=== PATIENT | female | born 1965 | race Caucasian/White ===

== ENCOUNTER 2017-08-01 13:02 | Inpatient (IN) | payer OTHER ==
[2017-08-01] MEDS: LISINOPRIL 10 MG TAB PO (09:00)
[2017-08-01] MEDS: FUROSEMIDE 20 MG/2 ML VIAL (J1940) IV (09:00)
[~2017-08-01 13:02] MED LIST: FUROSEMIDE 20 MG TAB PO
[2017-08-01] MEDS ORDERED: NITROGLYCERIN 0.4 MG SUBL TABLET As Ordered (13:31)
[2017-08-01] MEDS ORDERED: ASPIRIN 81 MG CHEW TABLET As Ordered (13:31)
[2017-08-01 13:45] LABS: BASO % 0.5 % (0.0-1.0); EOS # 0.2 10^3/uL (0.0-0.50); EOS % 3.6 % (0.0-3.0); HEMATOCRIT 42.3 % (36.0-47.0); HEMOGLOBIN 14.1 g/dl (12.0-15.5); IMMATURE GRANULOCYTE % 0.3 % (0-3.0); LYMPH # 1.3 10^3/uL (1.5-4.5); LYMPH % 19.9 % (24.0-44.0); MEAN CORPUSCULAR HEMOGLOBIN 28.2 pg (27.0-33.0); MEAN CORPUSCULAR HGB CONC 33.3 g/dl (32.0-36.5); MEAN CORPUSCULAR VOLUME 84.6 fl (80.0-96.0); MONO # 0.5 10^3/uL (0.0-0.8); MONO % 7.9 % (0.0-5.0); NEUTROPHILS # 4.3 10^3/uL (1.8-7.7); NEUTROPHILS % 67.8 % (36.0-66.0); PLATELET COUNT, AUTOMATED 246 10^3/uL (150-450); RED CELL DISTRIBUTION WIDTH 13.2 % (11.5-14.5); WHITE BLOOD COUNT 6.3 10^3/uL (4.0-10.0)
[2017-08-01] MEDS: ASPIRIN 81 MG CHEW TABLET PO (13:45)
[2017-08-01] MEDS: NITROGLYCERIN 0.4 MG SUBL TABLET SL (13:46)
[2017-08-01 13:54] LABS: INR 1.09; PROTHROMBIN TIME 14.3 SECONDS (12.4-14.5)
[2017-08-01 13:55] LABS: PARTIAL THROMBOPLASTIN TIME 26.4 SECONDS (26.8-37.9)
[2017-08-01 13:57] LABS: D-DIMER QUANT 2259.9 ng/ml (<500)
[2017-08-01 14:14] LABS: PHENOBARBITAL LEVEL 16.6 UG/ML (15.0-40.0)
[2017-08-01 14:14] LABS: ALBUMIN 3.5 GM/DL (3.2-5.2); ALBUMIN/GLOBULIN RATIO 0.95 (1.00-1.93); ALKALINE PHOSPHATASE 133 U/L (45-117); ALT/SGPT 34 U/L (12-78); ANION GAP 8 MEQ/L (8-16); AST/SGOT 15 U/L (7-37); BILIRUBIN,DIRECT < 0.1 MG/DL (0.0-0.2); BILIRUBIN,TOTAL 0.3 MG/DL (0.2-1.0); BLOOD UREA NITROGEN 10 MG/DL (7-18); CALCIUM LEVEL 8.2 MG/DL (8.5-10.1); CARBON DIOXIDE LEVEL 26 MEQ/L (21-32); CHLORIDE LEVEL 108 MEQ/L (98-107); CPK CREATINE PHOSPHOKINASE 87 U/L (26-192); CREATININE FOR GFR 0.73 MG/DL (0.55-1.30); FREE T4 1.06 NG/DL (0.76-1.46); GLOMERULAR FILTRATION RATE > 60.0 (>51); GLUCOSE, FASTING 97 MG/DL (70-100); LIPASE 115 U/L (73-393); SODIUM LEVEL 142 MEQ/L (136-145); TOTAL PROTEIN 7.2 GM/DL (6.4-8.2); TROPONIN I < 0.02 NG/ML (< 0.10)
[2017-08-01 14:20] LABS: MB/CK RELATIVE INDEX 1.14 (< OR =4); NT-PRO BNP 201 PG/ML (<125); THYROID STIMULATING HORMONE 0.655 uIU/ML (0.358-3.740)
[2017-08-01] MEDS: cefTRIAXone SOD 1 GM in D5W MINI-BAG PLUS 50 ML IV (16:00)
[2017-08-01] MEDS: AZITHROMYCIN INJ 500 MG, VIAL MATE ADAPTER 1 EACH in D5W 250 ML IV (16:43)
[2017-08-01] MEDS ORDERED: MORPHINE 4 MG/ML 1ML VIAL/SYRINGE (J2270) As Ordered (17:11)
[2017-08-01] MEDS: MORPHINE 2 MG/ML 1ML SYRINGE (J2270) IV (17:30)
[2017-08-01 18:00] LABS: LDH LACTATE DEHYDROGENASE 246 U/L (84-246)
[2017-08-01 18:34] LABS: CHOLESTEROL LEVEL 211 MG/DL (<200); CHOLESTEROL RISK RATIO 3.767 (<5); HDL CHOLESTEROL 56 MG/DL (>40); NON-HDL-C 155 MG/DL; TRIGLYCERIDES LEVEL 110 MG/DL (<150)
[2017-08-01 18:42] LABS: PH BODY FLUID 7.649 UNITS (NOT ESTABLISHED); SOURCE, BODY FLUID pH PLEURAL
[2017-08-01 18:44] LABS: ESTIMATED AVERAGE GLUCOSE 111 MG/DL (60-110); HEMOGLOBIN A1c 5.5 %
[2017-08-01 19:10] LABS: AMYLASE, BODY FLUID 12 U/L (NOT ESTABLISHED); CHOLESTEROL, BODY FLUID 133 MG/DL (NOT ESTABLISHED); LDH, BODY FLUID 234 U/L (NOT ESTABLISHED); SOURCE, BODY FLUID AMYLASE PLEURAL; SOURCE, BODY FLUID CHOL PLEURAL; SOURCE, BODY FLUID GLUCOSE PLEURAL; SOURCE, BODY FLUID LDH PLEURAL; SOURCE, BODY FLUID TRIG PLEURAL; TRIGLYCERIDE, BODY FLUID 45 MG/DL (NOT ESTABLISHED)
[2017-08-01 19:11] LABS: BF MONONUCLEAR CELL % 58.2 % (0-0); BF POLYMORPHONUCLEAR CELL % 41.8 % (0-0); RBC BODY FLUID 20 10^3/uL (<2); WBC BODY FLUID 3947 /uL (0-10)
[2017-08-01 19:12] LABS: APPEARANCE, BODY FLUID CLOUDY (CLEAR); BF DIFF IF INDICATED? YES (NO); PLEURAL FL COLOR ORANGE (COLORLESS); SOURCE, BODY FLUID PLEURAL
[2017-08-01] MEDS ORDERED: MORPHINE 4 MG/ML 1ML VIAL/SYRINGE (J2270) IV (19:30)
[2017-08-01] MEDS: predniSONE 50 MG TAB PO (20:00)
[2017-08-01] MEDS: diphenhydrAMINE 50 MG CAP PO (20:00)
[2017-08-01] MEDS: AUGMENTIN 500 MG TAB PO (20:20)
[2017-08-01] MEDS: PERCOCET 5MG/325MG TAB PO (21:18)
[2017-08-02] MEDS: predniSONE 50 MG TAB PO ×2 (02:25→08:57)
[2017-08-02 06:14] LABS: HEMATOCRIT 42.6 % (36.0-47.0); HEMOGLOBIN 14.3 g/dl (12.0-15.5); MEAN CORPUSCULAR HEMOGLOBIN 28.2 pg (27.0-33.0); MEAN CORPUSCULAR HGB CONC 33.6 g/dl (32.0-36.5); PLATELET COUNT, AUTOMATED 258 10^3/uL (150-450); RED BLOOD COUNT 5.07 10^6/uL (4.00-5.40); RED CELL DISTRIBUTION WIDTH 13.2 % (11.5-14.5); WHITE BLOOD COUNT 8.2 10^3/uL (4.0-10.0)
[2017-08-02 06:40] LABS: ANION GAP 9 MEQ/L (8-16); BLOOD UREA NITROGEN 12 MG/DL (7-18); CALCIUM LEVEL 8.5 MG/DL (8.5-10.1); CARBON DIOXIDE LEVEL 24 MEQ/L (21-32); CHLORIDE LEVEL 110 MEQ/L (98-107); CREATININE FOR GFR 0.73 MG/DL (0.55-1.30); GLOMERULAR FILTRATION RATE > 60.0 (>51); GLUCOSE, FASTING 135 MG/DL (70-100); MAGNESIUM LEVEL 2.2 MG/DL (1.8-2.4); POTASSIUM SERUM 4.1 MEQ/L (3.5-5.1); SODIUM LEVEL 143 MEQ/L (136-145)
[2017-08-02] MEDS ORDERED: ISOVUE-370 76% 100ML VIAL (Q9967) As Ordered (08:29)
[2017-08-02] MEDS: diphenhydrAMINE INJ 50MG/ML VIAL (J1200) IV (08:55)
[2017-08-02] MEDS: ENOXAPARIN 40 MG/0.4 ML SYRINGE (J1650) SC (08:55)
[2017-08-02] MEDS: FUROSEMIDE 20 MG/2 ML VIAL (J1940) IV (08:56)
[2017-08-02] MEDS: AUGMENTIN 500 MG TAB PO (08:58)
[2017-08-02] MEDS: LISINOPRIL 10 MG TAB PO (08:58)
[2017-08-02] MEDS: PHENobarbital 30 MG TAB PO (09:04)
== END 2017-08-02 17:22 | disposition home or self-care (01) | DRG 139 ==
LOC: M ED 13:02 → M ED INP 18:08 → M MSPAV 20:40
PROVIDERS: Internal Medicine
PROC: 0W993ZZ Drainage of Right Pleural Cavity, Percutaneous Approach (ICD-10-PCS; principal; 2017-08-01)
DX: J18.9 Pneumonia, unspecified organism (principal); J90 Pleural effusion, not elsewhere classified; E66.01 Morbid (severe) obesity due to excess calories; Z68.41 Body mass index [BMI] 40.0-44.9, adult; I10 Essential (primary) hypertension; G40.909 Epilepsy, unspecified, not intractable, without status epilepticus; Z91.041 Radiographic dye allergy status

== ENCOUNTER → 2017-08-31 | Outpatient (CLI) | payer OTHER | LOC: M RAD 19:17 | DX: R05 Cough (principal); J90 Pleural effusion, not elsewhere classified; J98.11 Atelectasis | CPT/HCPCS: 71046 ==

== ENCOUNTER 2017-09-02 17:55 | Inpatient (IN) | payer OTHER ==
[2017-09-02 17:36] LABS: BASO % 0.5 % (0.0-1.0); EOS # 0.1 10^3/uL (0.0-0.50); EOS % 2.2 % (0.0-3.0); HEMATOCRIT 44.1 % (36.0-47.0); HEMOGLOBIN 14.9 g/dl (12.0-15.5); IMMATURE GRANULOCYTE % 0.2 % (0-3.0); LYMPH # 1.2 10^3/uL (1.5-4.5); LYMPH % 21.4 % (24.0-44.0); MEAN CORPUSCULAR HEMOGLOBIN 28.2 pg (27.0-33.0); MEAN CORPUSCULAR HGB CONC 33.8 g/dl (32.0-36.5); MEAN CORPUSCULAR VOLUME 83.4 fl (80.0-96.0); MONO # 0.5 10^3/uL (0.0-0.8); MONO % 7.9 % (0.0-5.0); NEUTROPHILS # 3.9 10^3/uL (1.8-7.7); NEUTROPHILS % 67.8 % (36.0-66.0); PLATELET COUNT, AUTOMATED 210 10^3/uL (150-450); RED BLOOD COUNT 5.29 10^6/uL (4.00-5.40); RED CELL DISTRIBUTION WIDTH 13.5 % (11.5-14.5); WHITE BLOOD COUNT 5.8 10^3/uL (4.0-10.0)
[2017-09-02 17:49] LABS: INR 1.09; PROTHROMBIN TIME 14.3 SECONDS (12.1-14.4)
[2017-09-02 17:53] LABS: ERYTHROCYTE SEDIMENTATION RATE 14 mm/hr (0-30)
[2017-09-02 18:00] LABS: RHEUMATOID FACTOR QUANT < 10.0 IU/ML (<15.0)
[2017-09-02] MEDS ORDERED: BISACODYL 5 MG TAB PO ×2 (18:00)
[2017-09-02] MEDS ORDERED: ACETAMINOPHEN TAB 650MG DOSE (2X325MG) PO ×2 (18:00)
[2017-09-02] MEDS ORDERED: MORPHINE 4 MG/ML 1ML VIAL/SYRINGE (J2270) IV ×2 (18:00)
[2017-09-02 18:01] LABS: AST/SGOT 10 U/L (7-37)
[2017-09-02 18:01] LABS: ALT/SGPT 25 U/L (12-78); LDH LACTATE DEHYDROGENASE 225 U/L (84-246)
[2017-09-02] MEDS ORDERED: FLUMAZENIL 0.5 MG/5 ML VIAL As Ordered ×2 (18:15)
[2017-09-02] MEDS ORDERED: MIDAZOLAM INJ 2 MG/2 ML VIAL (J2250) As Ordered ×8 (18:15→19:03)
[2017-09-02] MEDS ORDERED: LIDOCAINE 1% MDV 20ML VIAL As Ordered ×4 (18:17→19:04)
[2017-09-02 18:23] LABS: BASO % 0.5 % (0.0-1.0); EOS # 0.1 10^3/uL (0.0-0.50); EOS % 1.7 % (0.0-3.0); HEMATOCRIT 45.2 % (36.0-47.0); HEMOGLOBIN 15.1 g/dl (12.0-15.5); IMMATURE GRANULOCYTE % 0.2 % (0-3.0); LYMPH # 1.2 10^3/uL (1.5-4.5); LYMPH % 20.3 % (24.0-44.0); MEAN CORPUSCULAR HEMOGLOBIN 28.3 pg (27.0-33.0); MEAN CORPUSCULAR HGB CONC 33.4 g/dl (32.0-36.5); MEAN CORPUSCULAR VOLUME 84.8 fl (80.0-96.0); MONO # 0.5 10^3/uL (0.0-0.8); MONO % 7.7 % (0.0-5.0); NEUTROPHILS # 4.1 10^3/uL (1.8-7.7); NEUTROPHILS % 69.6 % (36.0-66.0); PLATELET COUNT, AUTOMATED 216 10^3/uL (150-450); RED BLOOD COUNT 5.33 10^6/uL (4.00-5.40); RED CELL DISTRIBUTION WIDTH 13.5 % (11.5-14.5); WHITE BLOOD COUNT 5.9 10^3/uL (4.0-10.0)
[2017-09-02 18:38] LABS: ALBUMIN/GLOBULIN RATIO 1.05 (1.00-1.93); ALKALINE PHOSPHATASE 145 U/L (45-117); ALT/SGPT 25 U/L (12-78); ANION GAP 9 MEQ/L (8-16); AST/SGOT 10 U/L (7-37); BILIRUBIN,TOTAL 0.4 MG/DL (0.2-1.0); BLOOD UREA NITROGEN 11 MG/DL (7-18); CALCIUM LEVEL 8.6 MG/DL (8.5-10.1); CARBON DIOXIDE LEVEL 25 MEQ/L (21-32); CHLORIDE LEVEL 107 MEQ/L (98-107); CHOLESTEROL LEVEL 245 MG/DL (< 200); CPK CREATINE PHOSPHOKINASE 73 U/L (26-192); CREATININE FOR GFR 0.74 MG/DL (0.55-1.30); GLOMERULAR FILTRATION RATE > 60.0 (>51); GLUCOSE, FASTING 88 MG/DL (70-100); LDH LACTATE DEHYDROGENASE 219 U/L (84-246); PHOSPHORUS LEVEL 2.7 MG/DL (2.5-4.9); SODIUM LEVEL 141 MEQ/L (136-145); TOTAL PROTEIN 7.8 GM/DL (6.4-8.2); TRIGLYCERIDES LEVEL 112 MG/DL (<150)
[2017-09-02] MEDS: MIDAZOLAM INJ 2 MG/2 ML VIAL (J2250) IV ×6 (19:06→19:16)
[2017-09-02] MEDS: LIDOCAINE 1% MDV 20ML VIAL SC ×4 (19:11)
[2017-09-02] MEDS ORDERED: NORCO, ANEXSIA 5/325MG TABLET (HYDROcodone/ACETAMINOPHEN) PO ×2 (19:30)
[2017-09-02 19:54] LABS: PH BODY FLUID 7.662 UNITS (NOT ESTABLISHED); RBC BODY FLUID 12 10^3/uL (<2); SOURCE, BODY FLUID pH PLEURAL; WBC BODY FLUID 1949 /uL (0-10)
[2017-09-02 19:55] LABS: APPEARANCE, BODY FLUID CLOUDY (CLEAR); BF DIFF IF INDICATED? YES (NO); PLEURAL FL COLOR AMBER (COLORLESS); SOURCE, BODY FLUID PLEURAL
[2017-09-02] MEDS: LEVALBUTEROL 1.25 MG/0.5 ML CONCENTRATE NEB NEB ×2 (20:00)
[2017-09-02 20:15] LABS: AMYLASE, BODY FLUID 14 U/L (NOT ESTABLISHED); CHOLESTEROL, BODY FLUID 146 MG/DL (NOT ESTABLISHED); LDH, BODY FLUID 199 U/L (NOT ESTABLISHED); SOURCE, BODY FLUID ALBUMIN PLEURAL; SOURCE, BODY FLUID AMYLASE PLEURAL; SOURCE, BODY FLUID CHOL PLEURAL; SOURCE, BODY FLUID GLUCOSE PLEURAL; SOURCE, BODY FLUID LDH PLEURAL; SOURCE, BODY FLUID TOT PROTEIN PLEURAL; SOURCE, BODY FLUID TRIG PLEURAL; TOTAL PROTEIN, BODY FLUID 5.7 G/DL (NOT ESTABLISHED); TRIGLYCERIDE, BODY FLUID 50 MG/DL (NOT ESTABLISHED)
[2017-09-02] MEDS: KCL 20MEQ IN D5/NS 1000ML 1,000 ML IV (20:16)
[2017-09-02] MEDS: DOCUSATE SODIUM 100 MG CAP PO ×2 (20:17)
[2017-09-02] MEDS: KETOROLAC 30 MG/ML VIAL (J1885) IV ×2 (20:17)
[2017-09-02] MEDS: HEPARIN SOD (PORCINE) 5000 UNITS/ML VIAL SC ×2 (21:26)
[2017-09-03] MEDS: LEVALBUTEROL 1.25 MG/0.5 ML CONCENTRATE NEB NEB ×8 (02:00→20:00)
[2017-09-03] MEDS: KETOROLAC 30 MG/ML VIAL (J1885) IV ×8 (02:15→21:08)
[2017-09-03] MEDS: HEPARIN SOD (PORCINE) 5000 UNITS/ML VIAL SC ×6 (05:18→21:08)
[2017-09-03 05:38] LABS: BASO % 0.5 % (0.0-1.0); EOS # 0.1 10^3/uL (0.0-0.50); EOS % 1.9 % (0.0-3.0); HEMOGLOBIN 13.9 g/dl (12.0-15.5); IMMATURE GRANULOCYTE % 0.2 % (0-3.0); LYMPH # 1.2 10^3/uL (1.5-4.5); LYMPH % 19.9 % (24.0-44.0); MEAN CORPUSCULAR HEMOGLOBIN 27.7 pg (27.0-33.0); MEAN CORPUSCULAR HGB CONC 33.1 g/dl (32.0-36.5); MEAN CORPUSCULAR VOLUME 83.8 fl (80.0-96.0); MONO # 0.6 10^3/uL (0.0-0.8); NEUTROPHILS # 4.3 10^3/uL (1.8-7.7); NEUTROPHILS % 68.5 % (36.0-66.0); PLATELET COUNT, AUTOMATED 204 10^3/uL (150-450); RED BLOOD COUNT 5.01 10^6/uL (4.00-5.40); RED CELL DISTRIBUTION WIDTH 13.6 % (11.5-14.5); WHITE BLOOD COUNT 6.2 10^3/uL (4.0-10.0)
[2017-09-03 06:00] LABS: ANION GAP 6 MEQ/L (8-16); BLOOD UREA NITROGEN 13 MG/DL (7-18); CARBON DIOXIDE LEVEL 27 MEQ/L (21-32); CHLORIDE LEVEL 109 MEQ/L (98-107); CREATININE FOR GFR 0.76 MG/DL (0.55-1.30); GLOMERULAR FILTRATION RATE > 60.0 (>51); GLUCOSE, FASTING 101 MG/DL (70-100); POTASSIUM SERUM 4.2 MEQ/L (3.5-5.1); SODIUM LEVEL 142 MEQ/L (136-145)
[2017-09-03 06:03] LABS: FREE THYROXINE INDEX 2.8 % (1.3-4.8); T UPTAKE 34 % (30-39); THYROXINE (T4) 8.1 UG/DL (4.5-12.0)
[2017-09-03 06:05] LABS: ABG BASE EXCESS -0.4 (-2.0-2.0); ABG HCO3 23.9 MEQ/L (22.0-26.0); ABG O2 SATURATION 96.3 % (95.0-99.0); ABG PARTIAL PRESSURE O2 79.7 mmHg (75.0-100.0); ABG STANDARD HCO3 24.2 MEQ/L (22.0-26.0); ABG pH (ARTERIAL) 7.416 UNITS (7.350-7.450)
[2017-09-03] MEDS: MOM 30ML SUSPENSION UDC PO ×2 (08:39)
[2017-09-03] MEDS: DOCUSATE SODIUM 100 MG CAP PO ×4 (08:39→21:07)
[2017-09-03] MEDS: PANTOPRAZOLE 40MG TAB (PROTONIX) PO ×2 (08:39)
[2017-09-03] MEDS: PHENobarbital 30 MG TAB PO ×2 (11:06)
[2017-09-03 11:17] LABS: PHENOBARBITAL LEVEL 13.8 UG/ML (15.0-40.0)
[2017-09-03] MEDS: ONDANSETRON 4 MG TAB (S0181) PO ×2 (21:07)
[2017-09-04] MEDS: LEVALBUTEROL 1.25 MG/0.5 ML CONCENTRATE NEB NEB ×8 (02:00→20:00)
[2017-09-04] MEDS: KETOROLAC 30 MG/ML VIAL (J1885) IV ×8 (02:58→19:31)
[2017-09-04] MEDS: HEPARIN SOD (PORCINE) 5000 UNITS/ML VIAL SC ×6 (05:45→21:58)
[2017-09-04 06:15] LABS: ANION GAP 5 MEQ/L (8-16); BLOOD UREA NITROGEN 13 MG/DL (7-18); CALCIUM LEVEL 8.1 MG/DL (8.5-10.1); CARBON DIOXIDE LEVEL 28 MEQ/L (21-32); CHLORIDE LEVEL 109 MEQ/L (98-107); GLOMERULAR FILTRATION RATE > 60.0 (>51); GLUCOSE, FASTING 102 MG/DL (70-100); POTASSIUM SERUM 4.1 MEQ/L (3.5-5.1); SODIUM LEVEL 142 MEQ/L (136-145)
[2017-09-04] MEDS: PHENobarbital 30 MG TAB PO ×2 (08:37)
[2017-09-04] MEDS: MOM 30ML SUSPENSION UDC PO ×2 (08:37)
[2017-09-04] MEDS: PANTOPRAZOLE 40MG TAB (PROTONIX) PO ×2 (08:37)
[2017-09-04] MEDS: DOCUSATE SODIUM 100 MG CAP PO ×4 (08:38→19:31)
[2017-09-04] MEDS ORDERED: SLF 3 ML SYR IV ×2 (15:00)
[2017-09-04] MEDS: SLF 3 ML SYR IV ×2 (19:32)
[2017-09-05] MEDS: LEVALBUTEROL 1.25 MG/0.5 ML CONCENTRATE NEB NEB ×8 (01:23→20:51)
[2017-09-05] MEDS: KETOROLAC 30 MG/ML VIAL (J1885) IV ×8 (04:15→20:16)
[2017-09-05 06:12] LABS: ANION GAP 4 MEQ/L (8-16); BLOOD UREA NITROGEN 12 MG/DL (7-18); CALCIUM LEVEL 8.1 MG/DL (8.5-10.1); CARBON DIOXIDE LEVEL 30 MEQ/L (21-32); CHLORIDE LEVEL 107 MEQ/L (98-107); CREATININE FOR GFR 0.75 MG/DL (0.55-1.30); GLOMERULAR FILTRATION RATE > 60.0 (>51); GLUCOSE, FASTING 98 MG/DL (70-100); POTASSIUM SERUM 4.2 MEQ/L (3.5-5.1); SODIUM LEVEL 141 MEQ/L (136-145)
[2017-09-05] MEDS: SLF 3 ML SYR IV ×6 (06:51→21:55)
[2017-09-05] MEDS: HEPARIN SOD (PORCINE) 5000 UNITS/ML VIAL SC ×6 (06:51→21:55)
[2017-09-05] MEDS: PERCOCET 5MG/325MG TAB PO ×6 (07:00→20:16)
[2017-09-05] MEDS: DOCUSATE SODIUM 100 MG CAP PO ×4 (08:44→20:15)
[2017-09-05] MEDS: PANTOPRAZOLE 40MG TAB (PROTONIX) PO ×2 (08:44)
[2017-09-05] MEDS: MOM 30ML SUSPENSION UDC PO ×2 (08:44)
[2017-09-05] MEDS: PHENobarbital 30 MG TAB PO ×2 (08:44)
[2017-09-06] MEDS: PERCOCET 5MG/325MG TAB PO ×10 (01:12→20:34)
[2017-09-06] MEDS: KETOROLAC 30 MG/ML VIAL (J1885) IV ×8 (01:12→20:34)
[2017-09-06] MEDS: LEVALBUTEROL 1.25 MG/0.5 ML CONCENTRATE NEB NEB ×10 (01:26→19:54)
[2017-09-06] MEDS: SLF 3 ML SYR IV ×6 (05:41→20:34)
[2017-09-06] MEDS: HEPARIN SOD (PORCINE) 5000 UNITS/ML VIAL SC ×6 (05:41→22:00)
[2017-09-06 06:24] LABS: ANION GAP 8 MEQ/L (8-16); BLOOD UREA NITROGEN 11 MG/DL (7-18); CALCIUM LEVEL 8.1 MG/DL (8.5-10.1); CARBON DIOXIDE LEVEL 27 MEQ/L (21-32); CHLORIDE LEVEL 105 MEQ/L (98-107); CREATININE FOR GFR 0.84 MG/DL (0.55-1.30); GLOMERULAR FILTRATION RATE > 60.0 (>51); GLUCOSE, FASTING 103 MG/DL (70-100); POTASSIUM SERUM 3.8 MEQ/L (3.5-5.1); SODIUM LEVEL 140 MEQ/L (136-145)
[2017-09-06] MEDS: ONDANSETRON 4 MG TAB (S0181) PO ×2 (07:06)
[2017-09-06] MEDS: PHENobarbital 30 MG TAB PO ×2 (08:22)
[2017-09-06] MEDS: DOCUSATE SODIUM 100 MG CAP PO ×4 (08:22→20:33)
[2017-09-06] MEDS: PANTOPRAZOLE 40MG TAB (PROTONIX) PO ×2 (08:22)
[2017-09-06] MEDS: MOM 30ML SUSPENSION UDC PO ×2 (08:23)
[2017-09-07] MEDS: LEVALBUTEROL 1.25 MG/0.5 ML CONCENTRATE NEB NEB ×8 (02:00→19:54)
[2017-09-07] MEDS: KETOROLAC 30 MG/ML VIAL (J1885) IV ×6 (02:01→13:53)
[2017-09-07] MEDS: PERCOCET 5MG/325MG TAB PO ×10 (02:01→21:07)
[2017-09-07 05:41] LABS: ANION GAP 6 MEQ/L (8-16); BLOOD UREA NITROGEN 11 MG/DL (7-18); CALCIUM LEVEL 8.1 MG/DL (8.5-10.1); CARBON DIOXIDE LEVEL 29 MEQ/L (21-32); CHLORIDE LEVEL 106 MEQ/L (98-107); CREATININE FOR GFR 0.79 MG/DL (0.55-1.30); GLOMERULAR FILTRATION RATE > 60.0 (>51); GLUCOSE, FASTING 103 MG/DL (70-100); POTASSIUM SERUM 4.5 MEQ/L (3.5-5.1); SODIUM LEVEL 141 MEQ/L (136-145)
[2017-09-07] MEDS: SLF 3 ML SYR IV ×6 (05:55→21:08)
[2017-09-07] MEDS: HEPARIN SOD (PORCINE) 5000 UNITS/ML VIAL SC ×6 (05:55→21:06)
[2017-09-07] MEDS: MOM 30ML SUSPENSION UDC PO ×2 (08:14)
[2017-09-07] MEDS: PANTOPRAZOLE 40MG TAB (PROTONIX) PO ×2 (08:15)
[2017-09-07] MEDS: PHENobarbital 30 MG TAB PO ×2 (08:15)
[2017-09-07] MEDS: DOCUSATE SODIUM 100 MG CAP PO ×4 (08:15→21:06)
[2017-09-08] MEDS: LEVALBUTEROL 1.25 MG/0.5 ML CONCENTRATE NEB NEB ×8 (01:27→19:50)
[2017-09-08] MEDS: PERCOCET 5MG/325MG TAB PO ×6 (04:45→23:11)
[2017-09-08] MEDS: HEPARIN SOD (PORCINE) 5000 UNITS/ML VIAL SC ×6 (05:38→21:01)
[2017-09-08] MEDS: SLF 3 ML SYR IV ×6 (05:38→21:02)
[2017-09-08 06:20] LABS: ANION GAP 7 MEQ/L (8-16); BLOOD UREA NITROGEN 11 MG/DL (7-18); CALCIUM LEVEL 8.3 MG/DL (8.5-10.1); CARBON DIOXIDE LEVEL 27 MEQ/L (21-32); CHLORIDE LEVEL 105 MEQ/L (98-107); GLOMERULAR FILTRATION RATE > 60.0 (>51); GLUCOSE, FASTING 106 MG/DL (70-100); POTASSIUM SERUM 4.3 MEQ/L (3.5-5.1); SODIUM LEVEL 139 MEQ/L (136-145)
[2017-09-08] MEDS: MOM 30ML SUSPENSION UDC PO ×2 (08:45)
[2017-09-08] MEDS: PANTOPRAZOLE 40MG TAB (PROTONIX) PO ×2 (08:45)
[2017-09-08] MEDS: DOCUSATE SODIUM 100 MG CAP PO ×4 (08:45→20:41)
[2017-09-08] MEDS: PHENobarbital 30 MG TAB PO ×2 (08:45)
[2017-09-08 08:46] LABS: BASO % 0.5 % (0.0-1.0); EOS # 0.1 10^3/uL (0.0-0.50); EOS % 1.7 % (0.0-3.0); HEMOGLOBIN 12.9 g/dl (12.0-15.5); IMMATURE GRANULOCYTE % 0.2 % (0-3.0); LYMPH # 0.7 10^3/uL (1.5-4.5); LYMPH % 11.1 % (24.0-44.0); MEAN CORPUSCULAR HEMOGLOBIN 28.2 pg (27.0-33.0); MEAN CORPUSCULAR HGB CONC 32.3 g/dl (32.0-36.5); MEAN CORPUSCULAR VOLUME 87.3 fl (80.0-96.0); MONO # 0.5 10^3/uL (0.0-0.8); MONO % 7.8 % (0.0-5.0); NEUTROPHILS # 5.2 10^3/uL (1.8-7.7); NEUTROPHILS % 78.7 % (36.0-66.0); PLATELET COUNT, AUTOMATED 229 10^3/uL (150-450); RED BLOOD COUNT 4.58 10^6/uL (4.00-5.40); RED CELL DISTRIBUTION WIDTH 13.7 % (11.5-14.5); WHITE BLOOD COUNT 6.7 10^3/uL (4.0-10.0)
[2017-09-08] MEDS: MORPHINE 4 MG/ML 1ML VIAL/SYRINGE (J2270) IV ×4 (12:18→20:43)
[2017-09-08] MEDS: MOXIFLOXACIN 400 MG TAB PO ×2 (13:52)
[2017-09-08 15:41] LABS: ANTI-SMOOTH MUSCLE ANTIBODY 26 High Units
[2017-09-08 15:42] LABS: ANTI DOUBLE STRAND-DNA AB 58 High IU/mL
[2017-09-08 15:43] LABS: ANTI SCLERODERMA ANTIBODIES <0.2 AI
[2017-09-08 15:44] LABS: SSA SJOGRENS A >8.0 High AI
[2017-09-08 15:45] LABS: SSB SJOGRENS B <0.2 AI
[2017-09-08] MEDS: BISACODYL 10 MG SUPP PR ×2 (16:51)
[2017-09-09] MEDS: LEVALBUTEROL 1.25 MG/0.5 ML CONCENTRATE NEB NEB ×8 (02:00→21:12)
[2017-09-09] MEDS: PERCOCET 5MG/325MG TAB PO ×8 (05:40→20:56)
[2017-09-09] MEDS: HEPARIN SOD (PORCINE) 5000 UNITS/ML VIAL SC ×6 (05:41→20:54)
[2017-09-09] MEDS: MOXIFLOXACIN 400 MG TAB PO ×2 (05:41)
[2017-09-09] MEDS: SLF 3 ML SYR IV ×6 (05:41→21:00)
[2017-09-09 06:20] LABS: BASO % 0.3 % (0.0-1.0); EOS # 0.1 10^3/uL (0.0-0.50); EOS % 1.3 % (0.0-3.0); HEMATOCRIT 39.6 % (36.0-47.0); IMMATURE GRANULOCYTE % 0.3 % (0-3.0); LYMPH # 0.9 10^3/uL (1.5-4.5); LYMPH % 9.4 % (24.0-44.0); MEAN CORPUSCULAR HEMOGLOBIN 28.1 pg (27.0-33.0); MEAN CORPUSCULAR HGB CONC 32.8 g/dl (32.0-36.5); MEAN CORPUSCULAR VOLUME 85.5 fl (80.0-96.0); MONO # 0.7 10^3/uL (0.0-0.8); MONO % 8.1 % (0.0-5.0); NEUTROPHILS # 7.3 10^3/uL (1.8-7.7); NEUTROPHILS % 80.6 % (36.0-66.0); PLATELET COUNT, AUTOMATED 239 10^3/uL (150-450); RED BLOOD COUNT 4.63 10^6/uL (4.00-5.40); RED CELL DISTRIBUTION WIDTH 13.6 % (11.5-14.5); WHITE BLOOD COUNT 9.1 10^3/uL (4.0-10.0)
[2017-09-09 06:38] LABS: ANION GAP 8 MEQ/L (8-16); BLOOD UREA NITROGEN 10 MG/DL (7-18); CALCIUM LEVEL 8.5 MG/DL (8.5-10.1); CARBON DIOXIDE LEVEL 27 MEQ/L (21-32); CHLORIDE LEVEL 103 MEQ/L (98-107); CREATININE FOR GFR 0.78 MG/DL (0.55-1.30); GLOMERULAR FILTRATION RATE > 60.0 (>51); GLUCOSE, FASTING 110 MG/DL (70-100); POTASSIUM SERUM 4.1 MEQ/L (3.5-5.1); SODIUM LEVEL 138 MEQ/L (136-145)
[2017-09-09] MEDS: DOCUSATE SODIUM 100 MG CAP PO ×4 (09:00→20:56)
[2017-09-09] MEDS: PHENobarbital 30 MG TAB PO ×2 (09:00)
[2017-09-09] MEDS: MOM 30ML SUSPENSION UDC PO ×2 (09:00)
[2017-09-09] MEDS: PANTOPRAZOLE 40MG TAB (PROTONIX) PO ×2 (09:00)
[2017-09-09] MEDS: ALTEPLASE 2 MG/2 ML VIAL (J2997 PER 1MG) XX ×2 (11:54)
[2017-09-09] MEDS: MORPHINE 4 MG/ML 1ML VIAL/SYRINGE (J2270) IV ×2 (16:57)
[2017-09-10] MEDS: LEVALBUTEROL 1.25 MG/0.5 ML CONCENTRATE NEB NEB ×8 (02:04→19:55)
[2017-09-10] MEDS: PERCOCET 5MG/325MG TAB PO ×2 (03:31)
[2017-09-10] MEDS: HEPARIN SOD (PORCINE) 5000 UNITS/ML VIAL SC ×6 (05:47→21:03)
[2017-09-10] MEDS: MOXIFLOXACIN 400 MG TAB PO ×2 (05:47)
[2017-09-10] MEDS: SLF 3 ML SYR IV ×6 (05:47→21:04)
[2017-09-10 05:57] LABS: BASO % 0.3 % (0.0-1.0); EOS # 0.2 10^3/uL (0.0-0.50); HEMATOCRIT 36.2 % (36.0-47.0); HEMOGLOBIN 11.8 g/dl (12.0-15.5); IMMATURE GRANULOCYTE % 0.4 % (0-3.0); LYMPH # 0.9 10^3/uL (1.5-4.5); LYMPH % 11.8 % (24.0-44.0); MEAN CORPUSCULAR HEMOGLOBIN 28.2 pg (27.0-33.0); MEAN CORPUSCULAR HGB CONC 32.6 g/dl (32.0-36.5); MEAN CORPUSCULAR VOLUME 86.4 fl (80.0-96.0); MONO # 0.7 10^3/uL (0.0-0.8); MONO % 9.8 % (0.0-5.0); NEUTROPHILS # 5.7 10^3/uL (1.8-7.7); NEUTROPHILS % 75.7 % (36.0-66.0); PLATELET COUNT, AUTOMATED 212 10^3/uL (150-450); RED BLOOD COUNT 4.19 10^6/uL (4.00-5.40); RED CELL DISTRIBUTION WIDTH 13.6 % (11.5-14.5); WHITE BLOOD COUNT 7.6 10^3/uL (4.0-10.0)
[2017-09-10 06:12] LABS: ANION GAP 8 MEQ/L (8-16); BLOOD UREA NITROGEN 11 MG/DL (7-18); CALCIUM LEVEL 8.2 MG/DL (8.5-10.1); CARBON DIOXIDE LEVEL 26 MEQ/L (21-32); CHLORIDE LEVEL 103 MEQ/L (98-107); CREATININE FOR GFR 0.71 MG/DL (0.55-1.30); GLOMERULAR FILTRATION RATE > 60.0 (>51); GLUCOSE, FASTING 102 MG/DL (70-100); POTASSIUM SERUM 4.1 MEQ/L (3.5-5.1); SODIUM LEVEL 137 MEQ/L (136-145)
[2017-09-10] MEDS: PHENobarbital 30 MG TAB PO ×2 (08:13)
[2017-09-10] MEDS: MOM 30ML SUSPENSION UDC PO ×2 (08:13)
[2017-09-10] MEDS: PANTOPRAZOLE 40MG TAB (PROTONIX) PO ×2 (08:13)
[2017-09-10] MEDS: DOCUSATE SODIUM 100 MG CAP PO ×4 (08:14→21:00)
[2017-09-11] MEDS: LEVALBUTEROL 1.25 MG/0.5 ML CONCENTRATE NEB NEB ×6 (01:31→13:05)
[2017-09-11] MEDS: SLF 3 ML SYR IV ×4 (06:00→14:00)
[2017-09-11 06:04] LABS: BASO % 0.5 % (0.0-1.0); EOS # 0.2 10^3/uL (0.0-0.50); EOS % 3.7 % (0.0-3.0); HEMATOCRIT 37.3 % (36.0-47.0); IMMATURE GRANULOCYTE % 0.3 % (0-3.0); LYMPH # 0.9 10^3/uL (1.5-4.5); LYMPH % 14.9 % (24.0-44.0); MEAN CORPUSCULAR HEMOGLOBIN 28.1 pg (27.0-33.0); MEAN CORPUSCULAR HGB CONC 32.2 g/dl (32.0-36.5); MEAN CORPUSCULAR VOLUME 87.4 fl (80.0-96.0); MONO # 0.6 10^3/uL (0.0-0.8); MONO % 9.2 % (0.0-5.0); NEUTROPHILS # 4.3 10^3/uL (1.8-7.7); NEUTROPHILS % 71.4 % (36.0-66.0); PLATELET COUNT, AUTOMATED 248 10^3/uL (150-450); RED BLOOD COUNT 4.27 10^6/uL (4.00-5.40); RED CELL DISTRIBUTION WIDTH 13.5 % (11.5-14.5)
[2017-09-11] MEDS: MOXIFLOXACIN 400 MG TAB PO ×2 (06:06)
[2017-09-11] MEDS: HEPARIN SOD (PORCINE) 5000 UNITS/ML VIAL SC ×4 (06:06→14:00)
[2017-09-11 06:17] LABS: ANION GAP 8 MEQ/L (8-16); BLOOD UREA NITROGEN 13 MG/DL (7-18); CALCIUM LEVEL 8.3 MG/DL (8.5-10.1); CARBON DIOXIDE LEVEL 26 MEQ/L (21-32); CHLORIDE LEVEL 108 MEQ/L (98-107); CREATININE FOR GFR 0.67 MG/DL (0.55-1.30); GLOMERULAR FILTRATION RATE > 60.0 (>51); GLUCOSE, FASTING 97 MG/DL (70-100); POTASSIUM SERUM 3.8 MEQ/L (3.5-5.1); SODIUM LEVEL 142 MEQ/L (136-145)
[2017-09-11] MEDS: DOCUSATE SODIUM 100 MG CAP PO ×2 (09:00)
[2017-09-11] MEDS: MOM 30ML SUSPENSION UDC PO ×2 (09:00)
[2017-09-11] MEDS: PHENobarbital 30 MG TAB PO ×2 (09:11)
[2017-09-11] MEDS: PANTOPRAZOLE 40MG TAB (PROTONIX) PO ×2 (09:11)
[2017-09-12] MEDS ORDERED: PHENobarbital 30 MG TAB PO ×2 (09:00)
[2017-09-14 07:20] LABS: ANTI DOUBLE STRAND-DNA AB 60 High IU/mL
[2017-09-14 07:21] LABS: RNP ANTIBODIES <0.2 AI; SJOGREN'S ANTI SS-A >8.0 High AI; SJOGREN'S ANTI SS-B <0.2 AI; SMITH ANTIBODIES <0.2 AI
[2017-09-14 07:39] LABS: ANA COMMENT See below:
== END 2017-09-11 16:32 | disposition home or self-care (01) | DRG 143 ==
LOC: M PCU 17:55
PROVIDERS: Internal Medicine Pulmonary Disease
PROC: 0W9930Z Drainage of Right Pleural Cavity with Drainage Device, Percutaneous Approach (ICD-10-PCS; principal; 2017-09-02 17:03)
DX: J90 Pleural effusion, not elsewhere classified (principal); J95.811 Postprocedural pneumothorax; E66.01 Morbid (severe) obesity due to excess calories; G40.909 Epilepsy, unspecified, not intractable, without status epilepticus

== ENCOUNTER → 2017-09-02 | Outpatient (CLI) | payer OTHER | LOC: M RAD 17:49 | DX: J90 Pleural effusion, not elsewhere classified (principal); J98.11 Atelectasis | CPT/HCPCS: 71250 ==

== ENCOUNTER → 2017-10-20 | Outpatient (CLI) | payer OTHER | LOC: M SMT 14:54 | DX: M32.13 Lung involvement in systemic lupus erythematosus (principal) | CPT/HCPCS: 71046 ==

== ENCOUNTER → 2019-04-11 | Outpatient (REF) | payer OTHER ==
[~2019-04-11] MED LIST changes: +AMOX500T2 PO; +AVEL1TAB3 PO; -FUROSEMIDE 20 MG TAB PO; +LISI10TA4 PO; +PHEN32.44 PO
== END ==
LOC: M SFHCLERA 15:40
PROVIDERS: ATTEND Physician Assistant
DX: L02.91 Cutaneous abscess, unspecified (principal)

== ENCOUNTER → 2021-01-03 | Outpatient (CLI) | payer OTHER ==
[~2021-01-03] MED LIST changes: +LISI10TA22 PO; -LISI10TA4 PO
--- NOTE | 2021-01-03 15:05 | REP ---
INDICATION: LEFT HIP PAIN COMPARISON: None. TECHNIQUE: AP and frog-lateral views of the left hip FINDINGS: Moderate osteoarthritic degenerative changes include subchondral sclerosis and subtle suspected cystic changes involving the acetabulum with associated marginal osteophyte formation and near complete joint space obliteration. Sclerosis and subtle cystic changes to the underlying femoral head are also suggested. No acute fracture or dislocation. IMPRESSION: Moderate osteoarthritic degenerative changes. <Electronically signed by James Chan > 01/03/21 [id number]
== END ==
LOC: M WUC 14:15
PROVIDERS: ATTEND Student in an Organized Health Care Education/Training Program
DX: M16.12 Unilateral primary osteoarthritis, left hip (principal)

== ENCOUNTER → 2021-01-24 | Outpatient (CLI) | payer OTHER ==
--- NOTE | 2021-01-25 04:58 | REP ---
INDICATION: LT HIP PAIN. COMPARISON: None. TECHNIQUE: 2 limited views of the pelvis FINDINGS: Examination is limited by technique and underpenetration. Moderate to early advanced osteoarthritic degenerative changes include periarticular sclerosis, joint space narrowing, and marginal osteophyte formation (left greater than right). IMPRESSION: Osteoarthritic degenerative changes (left greater than right). <Electronically signed by James Chan > 01/25/21 [id number]
== END ==
LOC: M SOG 08:09
PROVIDERS: ATTEND Orthopaedic Surgery Adult Reconstructive Orthopaedic Surgery
DX: M16.0 Bilateral primary osteoarthritis of hip (principal)

== ENCOUNTER → 2022-01-02 | Outpatient (CLI) | payer OTHER | LOC: M LABSMTC 11:12 | PROVIDERS: ATTEND Anesthesiology | DX: Z01.812 Encounter for preprocedural laboratory examination (principal); Z11.52 Encounter for screening for COVID-19 ==

== ENCOUNTER → 2022-01-30 | Outpatient (CLI) | payer OTHER ==
[~2022-01-30] MED LIST changes: +HYDR200T3 PO
== END ==
LOC: M LABSMTC 09:04
PROVIDERS: ATTEND Anesthesiology
DX: Z01.812 Encounter for preprocedural laboratory examination (principal); Z11.52 Encounter for screening for COVID-19

== ENCOUNTER 2022-02-03 08:05 | Day surgery (SDC) | payer OTHER ==
[~2022-02-03] VITALS: Ht 177.8 cm; Wt 146.9 kg
[~2022-02-03 08:05] MED LIST changes: +LIDOCAINE 1% SDV 5ML VIAL As Ordered ONE; +LR 1,000 ML IV SCH
[2022-02-03] MEDS: PHENYLEPHRINE 2.5% OPHTH SOL 2ML OD SCH ×2 (08:50→08:52)
[2022-02-03] MEDS: TETRACAINE 0.5% OPHTH SOLN 4ML OD SCH ×2 (08:50→08:51)
[2022-02-03] MEDS: CYCLOPENTOLATE 1% OPHTH SOLN 2ML BTL OD SCH ×2 (08:50→08:52)
[2022-02-03] MEDS: FLURBIPROFEN 0.03% OPHTH SOLN 2.5 ML OD SCH ×2 (08:50→08:52)
[2022-02-03] MEDS ORDERED: fentaNYL 100 MCG/2 ML INJECTION As Ordered ONE (09:55)
[2022-02-03] MEDS ORDERED: MIDAZOLAM INJ 2MG/2ML VIAL (J2250 PER 1MG) As Ordered ONE (09:55)
[2022-02-03 10:08] VITALS: BP 184/83
== END 2022-02-03 10:09 | disposition home or self-care (01) ==
LOC: M SDC 08:05
PROVIDERS: ATTEND Ophthalmology
DX: H25.11 Age-related nuclear cataract, right eye (principal); M32.9 Systemic lupus erythematosus, unspecified; Z79.899 Other long term (current) drug therapy; Z91.041 Radiographic dye allergy status
CPT/HCPCS: 66984; J2250; J3010

== ENCOUNTER → 2022-03-09 | Outpatient (CLI) | payer OTHER ==
[~2022-03-09] MED LIST changes: -LIDOCAINE 1% SDV 5ML VIAL As Ordered ONE; -LR 1,000 ML IV SCH
== END ==
LOC: M LABSMTC 10:20
PROVIDERS: ATTEND Anesthesiology
DX: Z01.818 Encounter for other preprocedural examination (principal)

== ENCOUNTER 2022-03-10 09:08 | Day surgery (SDC) | payer OTHER ==
[~2022-03-10] VITALS: Ht 177.8 cm; Wt 146.5 kg
[~2022-03-10 09:08] MED LIST changes: +CYCLOPENTOLATE 1% OPHTH SOLN 2ML BTL OS SCH; +FLURBIPROFEN 0.03% OPHTH SOLN 2.5 ML OS SCH; +LIDOCAINE 1% SDV 5ML VIAL As Ordered ONE; +LR 1,000 ML IV SCH; +PHENYLEPHRINE 2.5% OPHTH SOL 2ML OS SCH; +TETRACAINE 0.5% OPHTH SOLN 4ML OS SCH
[2022-03-10] MEDS ORDERED: MIDAZOLAM INJ 2MG/2ML VIAL As Ordered ONE (11:17)
[2022-03-10] MEDS ORDERED: fentaNYL 100 MCG/2 ML INJECTION As Ordered ONE (11:21)
[2022-03-10 12:10] VITALS: BP 181/81
== END 2022-03-10 12:10 | disposition home or self-care (01) ==
LOC: M SDC 09:08
PROVIDERS: ATTEND Ophthalmology
DX: H25.812 Combined forms of age-related cataract, left eye (principal); M32.9 Systemic lupus erythematosus, unspecified; Z91.041 Radiographic dye allergy status; Z79.899 Other long term (current) drug therapy
CPT/HCPCS: 66984; J2250; J3010

== ENCOUNTER → 2024-10-21 | Outpatient (REF) | payer OTHER ==
[~2024-10-21] MED LIST changes: -CYCLOPENTOLATE 1% OPHTH SOLN 2ML BTL OS SCH; -FLURBIPROFEN 0.03% OPHTH SOLN 2.5 ML OS SCH; -HYDR200T3 PO; +HYDR200T46 PO; -LIDOCAINE 1% SDV 5ML VIAL As Ordered ONE; -LR 1,000 ML IV SCH; -PHENYLEPHRINE 2.5% OPHTH SOL 2ML OS SCH; -TETRACAINE 0.5% OPHTH SOLN 4ML OS SCH
[2024-10-21 18:43] LABS: ALT/SGPT 26.0 U/L (7.0-40); AST/SGOT 15.0 U/L (<34); CALCIUM LEVEL 9.8 MG/DL (8.3-10.6); CARBON DIOXIDE LEVEL 30.0 MMOL/L (20-31); CHLORIDE LEVEL 103.0 MMOL/L (98-107); CHOLESTEROL LEVEL 198.0 MG/DL (<200); CHOLESTEROL RISK RATIO 2.97 (<5); CREATININE FOR GFR 0.9 MG/DL (0.55-1.30); GLOMERULAR FILTRATION RATE 72.7 (>45); LDL CHOLESTEROL 116.9 MG/DL (<100); NON-HDL-C 131.5 MG/DL; POTASSIUM SERUM 3.7 MMOL/L (3.5-5.1); SODIUM LEVEL 143.0 MMOL/L (136-145); TRIGLYCERIDES LEVEL 73.0 MG/DL (<150)
[2024-10-21 18:54] LABS: BASO # 0.0 10^3/uL (0.0-0.2); BASO % 0.8 % (0.0-1.0); EOS # 0.2 10^3/uL (0.0-0.5); EOS % 4.1 % (0.0-3.0); LYMPH # 0.9 10^3/uL (1.5-5.0); LYMPH % 17.5 % (24.0-44.0); MONO # 0.5 10^3/uL (0.0-0.8); MONO % 9.7 % (2.0-8.0); NEUTROPHILS # 3.5 10^3/uL (1.5-8.5); NEUTROPHILS % 67.7 % (36.0-66.0); PLATELET COUNT, AUTOMATED 204 10^3/uL (150-450)
[2024-10-21 19:23] LABS: ESTIMATED AVERAGE GLUCOSE 111.0 MG/DL (60-110)
== END ==
LOC: M SFHCLERA 13:02
PROVIDERS: ATTEND Internal Medicine
DX: I10 Essential (primary) hypertension (principal)

== ENCOUNTER → 2024-12-23 | Outpatient (CLI) | payer OTHER | LOC: M SLEEP HO 11:09 | PROVIDERS: ATTEND Internal Medicine | DX: I10 Essential (primary) hypertension (principal); R06.83 Snoring ==